=== PATIENT | female | born 1960 | race African-American/Black ===

== ENCOUNTER 2024-01-27 15:44 | Emergency (ER) | payer MEDICAID ==
[~2024-01-27] VITALS: Ht 167.6 cm; Wt 55.0 kg
[~2024-01-27 15:44] MED LIST: ALBU05; AZIT500T8; HYDR-519; HYDR1TAB10; HYDR25TA; IPRA42SP2; LEVA0.6320; LORA1TAB; PRED1TAB; ZOLP5TAB2; [UNRECOGNIZED DRUG - CODE]
[2024-01-27 15:47] VITALS: BP 134/88; PULSE 69; RESP 16; TEMP 97.8; O2SAT 97
[2024-01-27] MEDS ORDERED: KETOROLAC 30MG/ML VIAL IM STA (15:52)
[2024-01-27] MEDS ORDERED: MAGNESIUM/ALUMINUM HYDROXIDE/SIMETHICONE 30ML UDC PO STA (15:52)
[2024-01-27] MEDS ORDERED: ONDANSETRON 4MG ODT PO STA (15:52)
[2024-01-27] MEDS ORDERED: DICYCLOMINE 10 MG/5 ML ORAL SYR PO STA (15:52)
[2024-01-27] MEDS ORDERED: DICYCLOMINE HCL 10MG CAPSULE PO NR (16:00)
[2024-01-27 16:16] LABS: BASOPHILS % 0.3 % (0.0-2.0); EOSINOPHILS % 1.7 % (0.0-5.0); HEMATOCRIT. 38.2 % (36.0-48.0); HEMOGLOBIN. 12.9 g/dL (12.0-16.0); LYMPHOCYTES % 25.6 % (20.0-50.0); MEAN CORPUSCULAR HEMOGLOBIN 30.9 pg (28.0-32.0); MEAN CORPUSCULAR HGB CONC 33.8 g/dL (31.0-37.0); MEAN CORPUSCULAR VOLUME 91.5 fL (81.0-99.0); MONOCYTES % 6.6 % (2.0-8.0); NEUTROPHILS % 65.8 % (40.0-76.0); PLATELET 313 x1000/uL (130-400); RED BLOOD CELL COUNT 4.17 mill/uL (4.2-5.4); RED CELL DISTRIBUTION WIDTH 13.6 % (11.6-14.6); WHITE BLOOD COUNT 6.7 x1000/uL (4.5-11.0)
[2024-01-27 16:25] LABS: CHLORIDE 111 mEq/L (98-107); POTASSIUM 3.8 mEq/L (3.5-5.1); SODIUM 144 mEq/L (136-145)
[2024-01-27 16:26] LABS: CALCIUM 9.7 mg/dL (8.7-10.4); CARBON DIOXIDE 28 mEq/L (21-32)
[2024-01-27 16:31] LABS: CREATININE 0.9 mg/dL (0.6-1.0); GLUCOSE 91 mg/dL (70-105); UREA NITROGEN BLOOD 23 mg/dL (9-23)
[2024-01-27 16:41] LABS: ETHANOL BLOOD < 10 mg/dL (<10)
[2024-01-27 17:02] LABS: PROTHROMBIN TIME 10.7 sec (9.6-11.0)
== END 2024-01-27 18:05 | disposition left against medical advice (07) ==
LOC: ER 15:44
DX: R10.9 Unspecified abdominal pain (principal); J45.909 Unspecified asthma, uncomplicated; Z88.6 Allergy status to analgesic agent; Z91.040 Latex allergy status
CPT/HCPCS: 36415; 80048; 80320; 85025; 99283; G0480